=== PATIENT | female | born 1970 | race Caucasian/White ===

== ENCOUNTER 2017-02-21 12:36 | Inpatient (IN) | payer OTHER ==
[~2017-02-21] VITALS: Ht 175.3 cm; Wt 72.0 kg
[2017-02-21 14:18] LABS: CALCIUM 8.1 mg/dL (8.5-10.1); CARBON DIOXIDE 22.2 mmol/L (21-32); CREATININE SERUM 1.2 mg/dL (0.6-1.0); POTASSIUM SERUM 3.2 mmol/L (3.5-5.1)
[2017-02-21 14:21] LABS: PLATELET COUNT 286 x10^3mcL (130-400)
[2017-02-21 14:23] LABS: BILIRUBIN TOTAL 0.82 mg/dL (0.20-1.00); MAGNESIUM 1.7 mg/dL (1.8-2.4); RED CELL DISTRIBUTION WIDTH 19.8 % (11.5-14.5); TOTAL PROTEIN, SERUM 6.8 g/dL (6.4-8.2)
[2017-02-21 14:45] LABS: ALBUMIN 2.9 g/dL (3.4-5.0)
[2017-02-21 15:28] LABS: UA SPECIFIC GRAVITY 1.015 (1.005-1.035); microscopic required? YES; urine erythrocyte NEGATIVE (NEGATIVE)
[2017-02-21 15:34] LABS: BAND NEUTROPHIL 6 % (0-10); BASOPHIL 0 % (0-2); MONOCYTE 4 % (0-7); SEGMENTED NEUTROPHILS 87 % (37-75); rbc morphology (normal/abnorm) ABNORMAL (NORMAL)
[2017-02-21 18:21] VITALS: BP 113/69
[2017-02-21 18:22] LABS: AMPHETAMINE QUAL UR POSITIVE (NEG <=1000)
[2017-02-21 18:37] LABS: T3 TOTAL 0.32 ng/mL
[2017-02-21 19:01] LABS: FREE T4 1.1 ng/dL (0.76-1.46); FREE THYROXINE INDEX 3.2 ug/dL (1.4-4.5); T4(THYROXINE) 9.6 ug/dL (4.7-13.3)
[2017-02-21 20:04] LABS: RED BLOOD CELLS 3.59 M/mm3 (4.10-5.10)
[2017-02-21 20:07] LABS: TOTAL IRON BINDING CAPACITY 298 ug/dL (250-450)
[2017-02-21 20:08] LABS: IRON 8 ug/dL (50-170)
[2017-02-21 21:45] VITALS: BP 114/67
[2017-02-22 03:06] LABS: BASOPHIL % 0.1 % (0-2); PLATELET COUNT 251 x10^3mcL (130-400)
[2017-02-22 03:14] LABS: RED CELL DISTRIBUTION WIDTH 24.6 % (11.5-14.5)
[2017-02-22 03:17] LABS: rbc morphology (normal/abnorm) ABNORMAL (NORMAL)
[2017-02-22 06:49] VITALS: BP 113/70
[2017-02-22 07:13] LABS: PLATELET COUNT 254 x10^3mcL (130-400)
[2017-02-22 07:16] LABS: RED CELL DISTRIBUTION WIDTH 27.6 % (11.5-14.5)
[2017-02-22 07:20] LABS: CALCIUM 7.9 mg/dL (8.5-10.1); CARBON DIOXIDE 23.4 mmol/L (21-32); CHLORIDE SERUM 105 mmol/L (98-107); CREATININE SERUM 0.9 mg/dL (0.6-1.0); GFR1 > 60 mL/min; GLUCOSE SERUM 95 mg/dL (74-106); MAGNESIUM 1.7 mg/dL (1.8-2.4); PHOSPHOROUS 2.2 mg/dL (2.5-4.9); POTASSIUM SERUM 3.2 mmol/L (3.5-5.1); SODIUM SERUM 136 mmol/L (136-145)
[2017-02-22 08:18] LABS: BAND NEUTROPHIL 8 % (0-10); BASOPHIL 0 % (0-2); MONOCYTE 7 % (0-7); SEGMENTED NEUTROPHILS 77 % (37-75)
[2017-02-22 08:19] LABS: rbc morphology (normal/abnorm) ABNORMAL (NORMAL)
[2017-02-22 08:21] LABS: ovalocyte/elliptocyte 1+
[2017-02-22 09:25] VITALS: BP 106/76
[2017-02-22 12:53] VITALS: BP 108/72
[2017-02-22 16:53] VITALS: BP 123/85
[2017-02-22 21:07] VITALS: BP 126/88
[2017-02-22 22:37] LABS: PLATELET COUNT 273 x10^3mcL (130-400)
[2017-02-22 22:40] LABS: RED CELL DISTRIBUTION WIDTH 34.4 % (11.5-14.5)
[2017-02-22 23:30] LABS: BAND NEUTROPHIL 4 % (0-10); METAMYELOCTE 2 % (0-2); MONOCYTE 3 % (0-7); SEGMENTED NEUTROPHILS 82 % (37-75)
[2017-02-22 23:33] LABS: rbc morphology (normal/abnorm) ABNORMAL (NORMAL)
[2017-02-22 23:34] LABS: ovalocyte/elliptocyte 1+; tear drop cell (dacryocyte) 1+
[2017-02-22 23:35] LABS: PLATELET MORPHOLOGY FEW LARGE PLATELETS
[2017-02-23 00:30] LABS: PLATELET COUNT 266 x10^3mcL (130-400)
[2017-02-23 00:37] LABS: RED CELL DISTRIBUTION WIDTH 34.3 % (11.5-14.5)
[2017-02-23 02:11] LABS: BAND NEUTROPHIL 4 % (0-10); METAMYELOCTE 2 % (0-2); MONOCYTE 4 % (0-7); SEGMENTED NEUTROPHILS 80 % (37-75); rbc morphology (normal/abnorm) ABNORMAL (NORMAL)
[2017-02-23 02:12] LABS: PLATELET MORPHOLOGY FEW LARGE PLATELETS; ovalocyte/elliptocyte 1+; tear drop cell (dacryocyte) 1+
[2017-02-23 05:21] VITALS: BP 124/78
[2017-02-23 07:25] LABS: CARBON DIOXIDE 24.9 mmol/L (21-32); CHLORIDE SERUM 103 mmol/L (98-107); SODIUM SERUM 137 mmol/L (136-145)
[2017-02-23 07:34] LABS: ALBUMIN 2.1 g/dL (3.4-5.0); CREATININE SERUM 0.8 mg/dL (0.6-1.0); GFR1 > 60 mL/min; GLUCOSE SERUM 102 mg/dL (74-106); MAGNESIUM 1.9 mg/dL (1.8-2.4); PHOSPHOROUS 2.4 mg/dL (2.5-4.9)
[2017-02-23 07:54] LABS: PLATELET COUNT 258 x10^3mcL (130-400)
[2017-02-23 08:00] LABS: RED CELL DISTRIBUTION WIDTH 34.4 % (11.5-14.5)
[2017-02-23 09:13] VITALS: BP 126/96
[2017-02-23 09:34] LABS: BAND NEUTROPHIL 0 % (0-10); BASOPHIL 0 % (0-2); METAMYELOCTE 2 % (0-2); MONOCYTE 4 % (0-7); SEGMENTED NEUTROPHILS 84 % (37-75)
[2017-02-23 09:35] LABS: rbc morphology (normal/abnorm) ABNORMAL (NORMAL)
[2017-02-23 09:36] LABS: ovalocyte/elliptocyte 1+; tear drop cell (dacryocyte) 1+
[2017-02-23 12:49] VITALS: BP 146/92
[2017-02-23] MEDS ORDERED: PRI20 PO (16:00)
[2017-02-23] MEDS ORDERED: LEVAQUIN750 MG PO (16:01)
[2017-02-23] MEDS ORDERED: FLAGYL500 MG PO (16:01)
[2017-02-23] MEDS ORDERED: LAC PO (16:02)
[2017-02-23] MEDS ORDERED: FERROUS SULFAT325 M2 PO (16:02)
[2017-02-23] MEDS ORDERED: ADV200 PO (16:03)
[2017-02-23 16:26] VITALS: BP 146/92
== END 2017-02-23 17:53 | disposition home or self-care (01) | DRG 532 ==
LOC: ED 12:36 → DU 16:21
PROVIDERS: Emergency Medicine; Family Medicine; ADMIT Family Medicine
PROC: 30233N1 Transfusion of Nonautologous Red Blood Cells into Peripheral Vein, Percutaneous Approach (ICD-10-PCS; principal; 2017-02-22)
PROC: 30233N1 Transfusion of Nonautologous Red Blood Cells into Peripheral Vein, Percutaneous Approach (ICD-10-PCS; 2017-02-22)
DX: D25.9 Leiomyoma of uterus, unspecified (principal); N17.0 Acute kidney failure with tubular necrosis; E43 Unspecified severe protein-calorie malnutrition; A04.8 Other specified bacterial intestinal infections; E87.8 Other disorders of electrolyte and fluid balance, not elsewhere classified; D62 Acute posthemorrhagic anemia; E83.42 Hypomagnesemia; E87.5 Hyperkalemia; E83.51 Hypocalcemia; Z82.49 Family history of ischemic heart disease and other diseases of the circulatory system; Z83.79 Family history of other diseases of the digestive system; Z68.23 Body mass index [BMI] 23.0-23.9, adult
CPT/HCPCS: 83880; 84439; G0480; J1956; J2405; J3010; J3475; J3480; J3490; J7030; J7040; J7050; P9016; Q0092; Q0163

== ENCOUNTER 2017-08-12 16:10 | Inpatient (IN) | payer OTHER ==
[~2017-08-12] VITALS: Ht 172.7 cm; Wt 71.7 kg
[~2017-08-12 16:10] MED LIST: ADV200 PO; FERROUS SULFAT325 M2 PO; FLAGYL500 MG PO; LAC PO; LEVAQUIN750 MG PO; PRI20 PO
[2017-08-12 19:01] LABS: PLATELET COUNT 316 x10^3mcL (130-400)
[2017-08-12 19:08] LABS: CALCIUM 8.8 mg/dL (8.5-10.1); CARBON DIOXIDE 28.7 mmol/L (21-32); CHLORIDE SERUM 106 mmol/L (98-107); CREATININE SERUM 0.9 mg/dL (0.6-1.0); GFR1 > 60 mL/min; GLUCOSE SERUM 95 mg/dL (74-106); POTASSIUM SERUM 3.5 mmol/L (3.5-5.1); SODIUM SERUM 141 mmol/L (136-145)
[2017-08-12 19:12] LABS: ALBUMIN 3.6 g/dL (3.4-5.0); ALKALINE PHOSPHATASE 84 U/L (46-116); ALT/SGPT 19 U/L (14-59); AST/SGOT 11 U/L (15-37); BILIRUBIN TOTAL 0.44 mg/dL (0.20-1.00); LIPASE 168 IU/L (73-393); TOTAL PROTEIN, SERUM 7.4 g/dL (6.4-8.2)
[2017-08-12 19:22] LABS: RED CELL DISTRIBUTION WIDTH 18.8 % (11.5-14.5)
[2017-08-12 20:28] LABS: BAND NEUTROPHIL 6 % (0-10); BASOPHIL 0 % (0-2); MONOCYTE 6 % (0-7); SEGMENTED NEUTROPHILS 65 % (37-75)
[2017-08-12 20:30] LABS: PLATELET MORPHOLOGY PLATELETS NORMAL; rbc morphology (normal/abnorm) ABNORMAL (NORMAL)
[2017-08-12 20:43] LABS: PHOSPHOROUS 3.2 mg/dL (2.5-4.9); RED BLOOD CELLS 3.95 M/mm3 (4.10-5.10)
[2017-08-12 20:44] LABS: CHOLESTEROL/HDL RATIO 1.9
[2017-08-12 20:53] LABS: FREE T4 1.04 ng/dL (0.76-1.46); FREE THYROXINE INDEX 2.5 ug/dL (1.4-4.5); T4(THYROXINE) 7.7 ug/dL (4.7-13.3)
[2017-08-12 21:04] VITALS: BP 140/87
[2017-08-12 21:06] VITALS: Ht 172.7 cm; Wt 71.7 kg
[2017-08-12 22:16] LABS: TOTAL IRON BINDING CAPACITY 400 ug/dL (250-450)
[2017-08-12 22:19] LABS: IRON 9 ug/dL (50-170)
[2017-08-13] VITALS (8 sets, daily range): BP systolic 119–147; BP diastolic 78–92
[2017-08-13 07:09] LABS: CALCIUM 8.2 mg/dL (8.5-10.1); CARBON DIOXIDE 27.2 mmol/L (21-32); CHLORIDE SERUM 108 mmol/L (98-107); CREATININE SERUM 0.9 mg/dL (0.6-1.0); GFR1 > 60 mL/min; GLUCOSE SERUM 104 mg/dL (74-106); MAGNESIUM 1.8 mg/dL (1.8-2.4); PHOSPHOROUS 3.2 mg/dL (2.5-4.9); POTASSIUM SERUM 3.8 mmol/L (3.5-5.1); SODIUM SERUM 142 mmol/L (136-145)
[2017-08-13 08:09] LABS: BASOPHIL % 0.7 % (0-2); PLATELET COUNT 214 x10^3mcL (130-400)
[2017-08-13 08:12] LABS: RED CELL DISTRIBUTION WIDTH 18.7 % (11.5-14.5)
[2017-08-13 08:16] LABS: rbc morphology (normal/abnorm) ABNORMAL (NORMAL)
[2017-08-13 16:00] LABS: PLATELET COUNT 253 x10^3mcL (130-400)
[2017-08-13 16:02] LABS: BASOPHIL % 0 % (0-2); RED CELL DISTRIBUTION WIDTH 18.9 % (11.5-14.5)
[2017-08-13 16:26] LABS: rbc morphology (normal/abnorm) ABNORMAL (NORMAL)
[2017-08-13 17:23] LABS: PLATELET COUNT 224 x10^3mcL (130-400)
[2017-08-13 17:26] LABS: RED CELL DISTRIBUTION WIDTH 18.4 % (11.5-14.5)
[2017-08-13 18:18] LABS: BAND NEUTROPHIL 0 % (0-10); BASOPHIL 0 % (0-2); MONOCYTE 6 % (0-7); SEGMENTED NEUTROPHILS 66 % (37-75); rbc morphology (normal/abnorm) ABNORMAL (NORMAL)
[2017-08-13 18:19] LABS: PLATELET MORPHOLOGY PLATELETS NORMAL
[2017-08-14 03:45] LABS: PLATELET COUNT 258 x10^3mcL (130-400)
[2017-08-14 04:05] LABS: BAND NEUTROPHIL 5 % (0-10); SEGMENTED NEUTROPHILS 70 % (37-75)
[2017-08-14 04:06] LABS: MONOCYTE 2 % (0-7)
[2017-08-14 04:07] LABS: PLATELET MORPHOLOGY PLATELETS NORMAL
[2017-08-14 05:31] LABS: rbc morphology (normal/abnorm) ABNORMAL (NORMAL)
[2017-08-14 06:00] VITALS: BP 123/81
[2017-08-14 08:38] LABS: CALCIUM 8.9 mg/dL (8.5-10.1); CARBON DIOXIDE 29.4 mmol/L (21-32); CHLORIDE SERUM 105 mmol/L (98-107); CREATININE SERUM 0.9 mg/dL (0.6-1.0); GFR1 > 60 mL/min; GLUCOSE SERUM 95 mg/dL (74-106); MAGNESIUM 1.9 mg/dL (1.8-2.4); PHOSPHOROUS 3.5 mg/dL (2.5-4.9); POTASSIUM SERUM 3.8 mmol/L (3.5-5.1); SODIUM SERUM 140 mmol/L (136-145)
[2017-08-14] MEDS ORDERED: FERROUS SULFAT325 M2 PO (08:57)
[2017-08-14 09:25] VITALS: BP 104/70
== END 2017-08-14 12:18 | disposition home or self-care (01) | DRG 663 ==
LOC: ED 16:10 → DU 19:32
PROVIDERS: Emergency Medicine; ADMIT Family Medicine
PROC: 30233N1 Transfusion of Nonautologous Red Blood Cells into Peripheral Vein, Percutaneous Approach (ICD-10-PCS; principal; 2017-08-13)
DX: D50.9 Iron deficiency anemia, unspecified (principal); D25.9 Leiomyoma of uterus, unspecified; N93.8 Other specified abnormal uterine and vaginal bleeding; Z68.24 Body mass index [BMI] 24.0-24.9, adult; R73.03 Prediabetes; E02 Subclinical iodine-deficiency hypothyroidism
CPT/HCPCS: 83880; 84439; 90658; J2916; J7030; J7050; P9016; Q0163